=== PATIENT | female | born 1935 | race Caucasian/White ===

== ENCOUNTER 2018-01-19 16:38 | Emergency (ER) | payer MEDICARE, SELFPAY ==
[2018-01-19 16:39] VITALS: BP 194/109; PULSE 76; RESP 18; TEMP 36.6; O2SAT 96; BMI 34.5
--- NOTE | 2018-01-19 18:16 | RAD_ITS ---
STUDY: X-RAY - PELVIS AND LEFT HIP REASON FOR EXAM: Female, 82 years old. Pain TECHNIQUE: Radiological exam, hip, unilateral, with pelvis when performed; 2 or 3 views. COMPARISON: None. FINDINGS: There is a non-specific bowel gas pattern. Normal visualized soft tissue structures. Normal bilateral iliac wings, sacroiliac joints and visualized sacrum. Normal bilateral superior and inferior pubic rami. Normal pubic symphysis. Normal bilateral ischial tuberosities. Normal visualized femoral head. Normal acetabulum. Normal hip joint. RAD/HIP, UNI W/ Pelvis 2-3 Views IMPRESSION: Normal x-ray examination of the pelvis and hip. Electronically Signed: Mata Keys MD at 20:04 EDT , Service support ,
[2018-01-19 18:28] VITALS: BP 220/67; PULSE 71; RESP 16; O2SAT 97
--- NOTE | 2018-01-19 18:31 | ED.VISSUMM ---
- ER Visit Summary Date of Service: 01/19/18 Chief Complaint: Left hip and back pain History of Present Illness: The patient is a 82 presenting with left hip pain. She denies injury. She states she was seen by her PCP and started on Naproxen. This did not improve her pain and she went to [place] emergency department Tuesday of last week. She states she was treated with pain medications and discharged home. She continued to have pain at home and was then evaluated at [facility] emergency department the following day. She then followed up with a chiropractor. She continues to complain of severe pain in the left hip and back. She denies numbness or weakness. Denies fever. She has chronic urinary incontinence. Denies bowel incontinence. Denies other complaints. Physical Examination: Vitals are stable. Patient is afebrile. Alert no acute distress. HEENT exam is unremarkable. Neck is supple. Lungs are clear and equal bilaterally. Heart is regular rate and rhythm. Abdomen is soft nontender nondistended. Back: Left paraspinal muscle tenderness, no midline tenderness Extremities left lateral hip tenderness to palpation, active full range of motion. Skin is warm and dry. No focal neurologic deficit. Remainder of exam is unremarkable. Emergency Department Course and Treatment: Patient is given morphine, Zofran IV. CBC shows a white count of 11.9. Chemistries unremarkable. Urinalysis unremarkable. Lumbar x-ray shows degenerative changes, nephrolithiasis. Left hip x-ray shows no acute process. CT abdomen pelvis shows multiple hepatic cysts measuring up to 3.8 cm. The gallbladder and uterus are not seen in accordance with history of cholecystectomy and hysterectomy. 1.6 cm right renal cyst. Nonobstructing 6 mm calculus of the left kidney. Colonic diverticulosis with no evidence of associated diverticulitis. Degenerative changes of the visualized thoracolumbar spine. Vacuum phenomenon of the L4-5 disc. On reevaluation, patient is feeling much improved. She is able to ambulate in the ED without difficulty. She is given a short course of [place] for home. She is advised to follow-up with her primary care physician. Advised return to ED if worsening complaints. Disposition: Discharged home Impression: Back pain, sciatica This note was generated with [employer] dictation software. It may contain incorrect words, spelling, and punctuation that were not noted in review of the chart prior to signing ED Disposition - Plan for ED Patient: Chief Complaint: Lower Extremity Injury Instructions: ED Sciatica Prescriptions: Hydrocodone Bitart/Apap 5-325 [[place] 5MG-325MG] 1 tablet PO Q6H PRN PRN 3 Days #10 tablet PRN Reason: Pain Referrals: [facility],Out of [Primary Care Provider] -
--- NOTE | 2018-01-19 18:35 | ED.DCSUM_ITS ---
- ER Visit Summary Date of Service: 01/19/18 Chief Complaint: Left hip and back pain History of Present Illness: The patient is a 82 presenting with left hip pain. She denies injury. She states she was seen by her PCP and started on Naproxen. This did not improve her pain and she went to [place] emergency department Tuesday of last week. She states she was treated with pain medications and discharged home. She continued to have pain at home and was then evaluated at [facility] emergency department the following day. She then followed up with a chiropractor. She continues to complain of severe pain in the left hip and back. She denies numbness or weakness. Denies fever. She has chronic urinary incontinence. Denies bowel incontinence. Denies other complaints. Physical Examination: Vitals are stable. Patient is afebrile. Alert no acute distress. HEENT exam is unremarkable. Neck is supple. Lungs are clear and equal bilaterally. Heart is regular rate and rhythm. Abdomen is soft nontender nondistended. Back: Left paraspinal muscle tenderness, no midline tenderness Extremities left lateral hip tenderness to palpation, active full range of motion. Skin is warm and dry. No focal neurologic deficit. Remainder of exam is unremarkable. Emergency Department Course and Treatment: Patient is given morphine, Zofran IV. CBC shows a white count of 11.9. Chemistries unremarkable. Urinalysis unremarkable. Lumbar x-ray shows degenerative changes, nephrolithiasis. Left hip x-ray shows no acute process. CT abdomen pelvis shows multiple hepatic cysts measuring up to 3.8 cm. The gallbladder and uterus are not seen in accordance with history of cholecystectomy and hysterectomy. 1.6 cm right renal cyst. Nonobstructing 6 mm calculus of the left kidney. Colonic diverticulosis with no evidence of associated diverticulitis. Degenerative changes of the visualized thoracolumbar spine. Vacuum phenomenon of the L4-5 disc. On reevaluation, patient is feeling much improved. She is able to ambulate in the ED without difficulty. She is given a short course of [place] for home. She is advised to follow-up with her primary care physician. Advised return to ED if worsening complaints. Disposition: Discharged home Impression: Back pain, sciatica This note was generated with [employer] dictation software. It may contain incorrect words, spelling, and punctuation that were not noted in review of the chart prior to signing ED Disposition - Plan for ED Patient: Chief Complaint: Lower Extremity Injury Instructions: ED Sciatica Prescriptions: Hydrocodone Bitart/Apap 5-325 [[place] 5MG-325MG] 1 tablet PO Q6H PRN PRN 3 Days # 10 tablet PRN Reason: Pain Referrals: [facility],Out of [Primary Care Provider] -
[2018-01-19 18:58] LABS: Absolute Neutrophil Count 6.3 X10^3/uL (2.0-7.7); Anion Gap 5 (5-15); BUN 15 mg/dL (7-18); BUN/Creat Ratio 20.8 RATIO (10-20); Basophil# 0.03 X10^3/uL; Basophil% 0.3 % (0-1); Calcium,Total 8.8 mg/dL (8.5-10.1); Chloride 103 mmol/L (98-107); Creatinine, Serum 0.72 mg/dL (0.55-1.02); EST Glomerular Filtration Rate 83 mL/min (>60); Eosinophil# 0.36 X10^3/uL; Est Glom Filt Rate - Afr Amer 100 mL/min (>60); Estimated Creatinine Clearance 35.49 ml/min; Glucose 103 mg/dL (74-106); Hematocrit 41.2 % (37-47); Hemoglobin 13.4 g/dl (12.0-15.0); Lymphocyte % 35.3 % (19-41); Mean Corp Hgb Conc 32.5 g/gl (32-36); Mean Corpuscular Volume 92.4 fL (81-99); Mean Platelet Vol. 9.3 fl (6.2-12.0); Monocyte# 0.96 X10^3/uL; Monocyte% 8.1 % (0-10); Neutrophil # 6.26 X10^3/uL (2.7-7.7); Neutrophil % 52.5 % (47-70); Platelet Count 310 K/mm3 (150-450); Potassium 3.9 mmol/L (3.5-5.1); RBC Distribution Width CV 14.5 % (11.6-14.6); RBC Distribution Width SD 48.9 fl (35.1-43.9); Red Blood Count 4.46 M/mm3 (4.2-5.4); Sodium Level 139 mmol/L (136-145); White Blood Count 11.9 K/mm3 (4.4-11.0)
[2018-01-19] MEDS: Ondansetron 4 MG/2 ML Vial IV (18:59)
[2018-01-19] MEDS: Morphine 4 MG/ML Syringe IV (18:59)
[2018-01-19 19:00] LABS: POSITIVE COUNT NO; POSITIVE DIFFERENTIAL NO; POSITIVE MORPHOLOGY NO
[2018-01-19 19:08] LABS: Bacteria 0 SEEN /hpf (None Seen); Mucous, Urine 0 SEEN /hpf (<or=2+); Red Blood Cells-Urine 0 SEEN /hpf (0-5); Squamous Epithelial Cells - UA 0 SEEN /hpf (5-10)
--- NOTE | 2018-01-19 19:10 | RAD_ITS ---
STUDY: X-RAY - LUMBAR SPINE REASON FOR EXAM: Female, 82 years old. Back pain TECHNIQUE: 3 view(s) of the lumbar spine were obtained. COMPARISON: None FINDINGS: Normal lumbar lordosis. There is no substantial scoliosis. There is a normal alignment of the vertebrae. There is diffuse endplate spondylosis of the lumbar spine. There is narrowing of the L3-4 through L5-S1 disc spaces. There is vacuum phenomenon at the L4-5 level. There is no demonstrated fracture. There are calcified plaques of the abdominal aorta. RAD/Lumbar Spine 2 or 3 Views IMPRESSION: Lumbar degenerative changes as detailed above. There is incidentally noted a 4 mm calcification overlying the lower pole of the left kidney suggestive of nephrolithiasis. Electronically Signed: Mata Keys MD at 19:57 EDT , Service support ,
[2018-01-19 19:30] LABS: Color, Urine Straw (Yellow); Glucose, Dipstick Normal (Normal); Ketone-Dipstick Negative (Negative); Leukocyte Esterase-Dipstick 100 /ul (Negative); Nitrite-Dipstick Negative (Negative); Occult Blood-Urine Negative /ul (Negative); Protein-Dipstick Negative (Negative); Urine Bilirubin Dipstick Negative (Negative); Urine Clarity Clear (Clear); Urine Urobilinogen Normal (Normal)
[2018-01-19 19:54] LABS: White Blood Cells 0-5 SEEN /hpf (0-5)
--- NOTE | 2018-01-19 20:05 | CT_ITS ---
STUDY: CT ABDOMEN AND PELVIS WITHOUT CONTRAST REASON FOR EXAM: Female, 82 years old. Left leg and hip pain x2 weeks RADIATION DOSAGE (If Supplied By Facility): CTDIvol = ( 17.85 ) mGy, DLP = ( 958.90 ) mGycm TECHNIQUE: Transaxial images were obtained from the dome of the diaphragm to the symphysis pubis without oral contrast, and without intravenous contrast. Sagittal and coronal images were reconstructed. Individualized dose optimization techniques were used for this CT. COMPARISON: None. FINDINGS: The visualized lung bases are unremarkable. The visualized portions of the heart are within normal limits. There are multiple hepatic cysts measuring up to 3.8 cm. The gallbladder is not seen in accordance with history of cholecystectomy. Normal spleen. Normal pancreas. Normal bilateral adrenal glands. There is a 1.6 cm right renal cyst. There is a nonobstructing 6 mm calculus of the left kidney. Normal visualized stomach. Normal small intestine. There is colonic diverticulosis with no evidence of associated diverticulitis. There is non-visualization of the appendix. There are calcified plaques of the abdominal aorta and common iliac arteries. Normal inferior vena cava. Normal retroperitoneum. Normal urinary bladder. There is absence of the uterus consistent with a prior hysterectomy. There is a small umbilical hernia containing fat. There are diffuse degenerative changes of the visualized thoracolumbar spine, most severely affecting the L4-5 level. There is L4-5 disc space narrowing with vacuum phenomenon. CT/Abdomen/Pelvis without Cont IMPRESSION: 1. Multiple hepatic cysts measuring up to 3.8 cm. 2. The gallbladder and uterus are not seen in accordance with history of cholecystectomy and hysterectomy. 3. 1.6 cm right renal cyst. 4. Nonobstructing 6 mm calculus of the left kidney. 5. Colonic diverticulosis with no evidence of associated diverticulitis. 6. Degenerative changes of the visualized thoracolumbar spine. Vacuum phenomenon of the L4-5 disc. Electronically Signed: Mata Keys MD at 21:02 EDT , Service support ,
--- NOTE | 2018-01-19 21:37 | ED.DEP ---
ED Disposition - Plan for ED Patient: Chief Complaint: Lower Extremity Injury Instructions: ED Sciatica Prescriptions: Hydrocodone Bitart/Apap 5-325 [[place] 5MG-325MG] 1 tablet PO Q6H PRN PRN 3 Days #10 tablet PRN Reason: Pain Referrals: [facility],Out of [Primary Care Provider] -
--- NOTE | 2018-01-19 21:38 | DCINST.ED_ITS ---
ED Disposition - Plan for ED Patient: Chief Complaint: Lower Extremity Injury Instructions: ED Sciatica Prescriptions: Hydrocodone Bitart/Apap 5-325 [[place] 5MG-325MG] 1 tablet PO Q6H PRN PRN 3 Days # 10 tablet PRN Reason: Pain Referrals: [facility],Out of [Primary Care Provider] -
--- NOTE | 2018-01-19 21:59 | ED.RN ---
DISCUSSED WITH PT'S REQUEST FOR MORE PAIN MEDS TO GET HER THROUGH THE NIGHT UNTIL SHE CAN GET PRESCRIPTION FILLED. STATED TO GIVE 1 NORCO PO NOW
[2018-01-19] MEDS: HYDROcodone Bitartrate/Apap 5/325 Tablet PO (22:04)
[2018-01-19 22:05] VITALS: BP 169/73; PULSE 73; RESP 18; O2SAT 95
== END 2018-01-19 22:06 | disposition home or self-care (01) ==
PROVIDERS: Emergency Provider Emergency Medicine
DX: M54.42 Lumbago with sciatica, left side (principal); M25.552 Pain in left hip; M47.896 Other spondylosis, lumbar region; M48.07 Spinal stenosis, lumbosacral region; K57.30 Diverticulosis of large intestine without perforation or abscess without bleeding; N20.0 Calculus of kidney; K76.89 Other specified diseases of liver; N28.1 Cyst of kidney, acquired; I10 Essential (primary) hypertension; Z79.899 Other long term (current) drug therapy
CPT/HCPCS: 72100; 73502; 74176; 80048; 81001; 85025; 96374; 96375; 99283; A4216; J2405